=== PATIENT | female | born 1960 | race Caucasian/White ===

== ENCOUNTER → 2020-06-23 | Outpatient (CLI) | payer OTHER ==
[2020-06-23 07:53] LABS: African American GFR (CKD) >90 (>60 ml/min/1.73 sqM); Blood Urea Nitrogen 23 mg/dL (7-17); Non-African American GFR(CKD) >90 (>60 ml/min/1.73 sqM)
--- NOTE | 2020-06-23 08:28 | CT ---
EXAMINATION TYPE: CT soft tissue neck w con DATE OF EXAM: 06/23/2020 COMPARISON: None HISTORY: neck fullness and pressure, ear pain, pain up back of head CT DLP: 272.1 mGycm CONTRAST: CT scan of the neck is performed with IV Contrast, patient injected with 100 mL of Isovue 300. Contrast enhanced CT of the neck was performed from the skull base through the lung apices. AIRWAY: The supraglottic, glottic, and subglottic portions of the airway appear patent and free of mass. SALIVARY GLANDS: The submandibular and parotid glands are free of mass or inflammatory process. THYROID GLAND: No nodules or masses seen. LYMPH NODES: No adenopathy seen greater than 1cm. LUNG APICES: No nodule or mass is seen. OTHER: Vascular structures are patent. No significant degenerative change of the cervical spine. N o abscess seen. IMPRESSION: No discrete abnormality identified to account for the patient's symptoms.
== END | disposition home or self-care (01) ==
LOC: RADCTMAIN 07:15
PROVIDERS: ATTEND Family Medicine
DX: M54.2 Cervicalgia (principal); R13.14 Dysphagia, pharyngoesophageal phase
CPT/HCPCS: 82565; 84520; 70491; 36415; Q9967

== ENCOUNTER 2023-02-22 09:47 | Day surgery (SDC) | payer OTHER ==
[2023-02-16 16:35] VITALS: BMI 25.4
[~2023-02-22 09:47] MED LIST: LACTATED RINGERS 1,000 ML IV SCH
[2023-02-22 11:03] VITALS: RESP 16; TEMP 97.6
[2023-02-22] MEDS ORDERED: PROPOFOL 10 MG/ML 20 ML VIAL IV ONE (11:26)
--- NOTE | 2023-02-22 11:41 | P.PCN ---
Date of Procedure: 02/22/23 Procedure(s) Performed: BRIEF HISTORY: Patient is a 62-year-old pleasant white female scheduled for an elective colonoscopy as a part of screening for colon cancer. PROCEDURE PERFORMED: Colonoscopy. PREOPERATIVE DIAGNOSIS: Screening for colon cancer. IV sedation per Anesthesia. PROCEDURE: After informed consent was obtained, the patient, was brought into the endoscopy unit. IV sedation was administered by Anesthesia under continuous monitoring. Digital rectal examination was normal. Initially the Olympus CF-160 flexible video colonoscope was then inserted in the rectum, gradually advanced into the cecum without any difficulty. Careful examination was performed as the scope was gradually being withdrawn. Ileocecal valve and the appendiceal orifice were visualized and appeared normal. Prep was excellent. Mucosa of the cecum, ascending colon, transverse colon, descending colon, sigmoid colon, and rectum appeared normal. Retroflexion was performed in the rectum and no lesions were seen. The patient tolerated the procedure well. IMPRESSION: Normal-appearing colon from rectum to cecum with no evidence of colorectal neoplasia. RECOMMENDATIONS: Findings of this examination were discussed with the patient as well as a family. She was advised to have a repeat screening colonoscopy in 10 years.
[2023-02-22 12:05] VITALS: BP 114/70; PULSE 73
== END 2023-02-22 12:28 | disposition home or self-care (01) ==
LOC: ORWHC2ENDO 09:47
PROVIDERS: ATTEND Internal Medicine Gastroenterology
DX: Z12.11 Encounter for screening for malignant neoplasm of colon (principal)
CPT/HCPCS: J2704; G0121

== ENCOUNTER → 2023-03-18 | Outpatient (CLI) | payer OTHER ==
--- NOTE | 2023-03-18 09:04 | US ---
EXAMINATION TYPE: US abdomen comp/pelvis limited DATE OF EXAM: 03/18/2023 COMPARISON: NONE CLINICAL INDICATION: Female, 62 years old with history of R10.30 LOWER ABDOMINAL PAIN, UNSPECIFIED; I ntermittent bilateral flank pain and pelvic pain x 6 months; Complete hysterectomy, ; Urinary kali quency. EXAM MEASUREMENTS: Liver Length: 12.8 cm Gallbladder Wall: 0.2 cm CBD: 0.5 cm Spleen: 7.9 cm Right Kidney: 10.1 x 4.7 x 6.1 cm Left Kidney: 10.7 x 4.9 x 5.6 cm Post Void Residual: NA mL Pancreas: No ductal dilation. No masses. Liver: wnl Gallbladder: Debris seen with change in patient position CBD: dilated Spleen: wnl Right Kidney: cyst = 1.6 x 1.8 x 1.8 cm no hydronephrosis. Left Kidney: No hydronephrosis. Upper IVC: wnl Abd Aorta: wnl Bladder: wnl Bilateral Jets Seen Yes Normal Post Void Residual (normal less than 50ml) NA IMPRESSION: 1. No evidence for acute process. 2. Simple appearing right renal cyst.
== END | disposition home or self-care (01) ==
LOC: RADUSWWP 07:22
PROVIDERS: ATTEND Internal Medicine
DX: N28.1 Cyst of kidney, acquired (principal); R10.30 Lower abdominal pain, unspecified
CPT/HCPCS: 76700; 76857